=== PATIENT | female | born 1930 | race Caucasian/White ===

== ENCOUNTER 2019-10-09 18:52 | Emergency (ER) | payer OTHER ==
[~2019-10-09] VITALS: Ht 160 cm; Wt 55.8 kg
[2019-10-10] MEDS ORDERED: HYDROcodone-ACET 10/325MG TAB PO ONE (00:15)
[2019-10-10 00:56] VITALS: BP 188/79
== END 2019-10-10 01:25 | disposition home or self-care (01) ==
LOC: ER 18:52
DX: S22.42XA Multiple fractures of ribs, left side, initial encounter for closed fracture (principal); I10 Essential (primary) hypertension; E78.5 Hyperlipidemia, unspecified; S40.022A Contusion of left upper arm, initial encounter; W01.0XXA Fall on same level from slipping, tripping and stumbling without subsequent striking against object, initial encounter; Y93.89 Activity, other specified; Y92.89 Other specified places as the place of occurrence of the external cause; Y99.8 Other external cause status
CPT/HCPCS: 71250; 72128; 72131